=== PATIENT | female | born 1935 | race Caucasian/White ===

== ENCOUNTER 2017-03-08 10:19 | Outpatient (RCR) | payer MEDICARE, BC | END 2017-04-21 11:27 | disposition home or self-care (01) | LOC: PT 10:19 | DX: S82.841D Displaced bimalleolar fracture of right lower leg, subsequent encounter for closed fracture with routine healing (principal) ==

== ENCOUNTER → 2017-09-27 | Outpatient (CLI) | payer MEDICARE, BC | LOC: RAD 09:31 | DX: M19.172 Post-traumatic osteoarthritis, left ankle and foot (principal); X58.XXXS Exposure to other specified factors, sequela; S82.842P Displaced bimalleolar fracture of left lower leg, subsequent encounter for closed fracture with malunion; S82.841D Displaced bimalleolar fracture of right lower leg, subsequent encounter for closed fracture with routine healing; X58.XXXD Exposure to other specified factors, subsequent encounter; M19.071 Primary osteoarthritis, right ankle and foot ==

== ENCOUNTER 2018-04-27 10:30 | Outpatient (RCR) | payer MEDICARE, BC | END 2018-04-27 11:00 | disposition home or self-care (01) | LOC: PT 10:30 | DX: S82.52XD Displaced fracture of medial malleolus of left tibia, subsequent encounter for closed fracture with routine healing (principal); Z96.662 Presence of left artificial ankle joint | CPT/HCPCS: G8978-GP; G8979-GP ==

== ENCOUNTER 2018-10-16 11:30 | Outpatient (RCR) | payer MEDICARE, BC | END 2018-10-16 12:00 | disposition home or self-care (01) | LOC: PT 11:30 | DX: Z47.1 Aftercare following joint replacement surgery (principal); Z96.662 Presence of left artificial ankle joint | CPT/HCPCS: G8978-GP; G8979-GP ==

== ENCOUNTER → 2018-11-08 | Outpatient (CLI) | payer MEDICARE, BC ==
[2018-11-08 11:02] LABS: HEMATOCRIT 45.9 % (37.0-47.0); HEMOGLOBIN 14.8 g/dL (12.5-16.0); MEAN PLATELET VOLUME 11.5 fl (7.4-10.4); RED BLOOD COUNT 5.08 M/mm3 (4.10-5.30); WHITE BLOOD COUNT 11.6 K/mm3 (4.8-10.8)
[2018-11-08 11:07] LABS: CALCIUM 9.5 mg/dL (8.4-10.2); POTASSIUM 3.9 mmol/L (3.6-5.0)
== END ==
LOC: LAB 10:33
PROVIDERS: Psychiatry & Neurology Psychiatry
DX: I50.32 Chronic diastolic (congestive) heart failure (principal)

== ENCOUNTER 2020-05-11 15:30 | Outpatient (RCR) | payer MEDICARE, BC | END 2020-08-02 | disposition still patient (30) | LOC: PT | DX: R53.81 Other malaise (principal) ==

== ENCOUNTER → 2021-01-27 | Outpatient (CLI) | payer MEDICARE, BC | LOC: RAD 09:54 | DX: M25.561 Pain in right knee (principal); Z96.653 Presence of artificial knee joint, bilateral ==

== ENCOUNTER → 2022-01-14 | Outpatient (CLI) | payer MEDICARE, BC ==
[2022-01-14 15:49] VITALS: BP 103/54
== END ==
LOC: AMSURD 01-13 14:40
DX: M81.0 Age-related osteoporosis without current pathological fracture (principal)
CPT/HCPCS: J0897

== ENCOUNTER → 2022-05-12 | Outpatient (CLI) | payer MEDICARE, BC ==
[2022-05-12 10:46] LABS: HEMATOCRIT 37.9 % (37.0-47.0); HEMOGLOBIN 11.8 g/dL (12.5-16.0); MEAN PLATELET VOLUME 10.6 fl (7.4-10.4); RED BLOOD COUNT 4.21 M/mm3 (4.10-5.30); RED CELL DISTRIBUTION WIDTH 16.7 % (11.5-14.5); WHITE BLOOD COUNT 9.2 K/mm3 (4.8-10.8)
[2022-05-12 10:58] LABS: ALBUMIN 3.5 g/dL (3.4-4.8); POTASSIUM 4.2 mmol/L (3.5-5.1)
[2022-05-12 10:59] LABS: CALCIUM 9.3 mg/dL (8.3-10.5)
[2022-05-12 11:00] LABS: TOTAL PROTEIN 6.4 g/dL (6.2-8.1)
[2022-05-12 11:02] LABS: TOTAL BILIRUBIN 0.6 mg/dL (0.2-1.2)
== END ==
LOC: LAB 10:36
PROVIDERS: Internal Medicine Interventional Cardiology
DX: R06.02 Shortness of breath (principal)

== ENCOUNTER → 2022-07-21 | Outpatient (CLI) | payer MEDICARE, BC ==
[2022-07-21 16:46] LABS: ALBUMIN 3.6 g/dL (3.4-4.8)
[2022-07-21 16:47] LABS: POTASSIUM 3.7 mmol/L (3.5-5.1)
[2022-07-21 16:48] LABS: CALCIUM 9.8 mg/dL (8.3-10.5)
[2022-07-21 16:49] LABS: TOTAL PROTEIN 6.2 g/dL (6.2-8.1)
[2022-07-21 16:51] LABS: TOTAL BILIRUBIN 0.9 mg/dL (0.2-1.2)
== END ==
LOC: LAB 16:28
PROVIDERS: Internal Medicine Interventional Cardiology
DX: Z01.89 Encounter for other specified special examinations (principal)

== ENCOUNTER → 2022-08-20 | Outpatient (CLI) | payer MEDICARE, BC ==
[~2022-08-20] VITALS: Ht 165.1 cm; Wt 77.0 kg
[~2022-08-20] MED LIST: ALENDRONATE SOD70 MG PO; AMBIEN5 M1 PO; BYSTOLIC5 MG PO; ELIQUIS5 MG PO; HYDROXYZINE HCL25 M1 PO; LEVOTHYROXINE125 MCG PO; MYRBETRIQ25 MG PO; PANTOPRAZOLE SO40 MG PO; PAROXETINE HYDR30 MG PO; TORSEMIDE20 M1 PO
[2022-08-20 15:11] VITALS: BP 128/62
== END ==
LOC: AMSURD 13:34
DX: M81.0 Age-related osteoporosis without current pathological fracture (principal)
CPT/HCPCS: J0897

== ENCOUNTER 2023-07-23 00:17 | Inpatient (IN) | payer MEDICARE, BC ==
[~2023-07-23] VITALS: Ht 160 cm; Wt 77.7 kg
[2023-07-23] MEDS ORDERED: ZYLOPRIM 100MG100 MG PO (00:26)
[2023-07-23] MEDS ORDERED: TRELEGY ELLIPT1 EAC1 IH (00:27)
[2023-07-23] MEDS ORDERED: ANORO ELLIPTA1 POW IH (00:31)
[2023-07-23] MEDS ORDERED: ENTRESTO 24 MG1 EACH PO (00:32)
[2023-07-23] MEDS ORDERED: ISOSORBIDE30 MG PO (00:34)
[2023-07-23] MEDS ORDERED: GOOD SENSE ASPI81 M1 PO (01:01)
[2023-07-23] MEDS ORDERED: CALTRATE 600 +1 TAB PO (01:02)
[2023-07-23] MEDS ORDERED: CRANBERRY200 MG PO (01:03)
[2023-07-23] MEDS ORDERED: COLACE100 M1 PO (01:03)
[2023-07-23] MEDS ORDERED: [UNRECOGNIZED DRUG - OTHER] (01:04)
[2023-07-23] MEDS ORDERED: CENTRUM SILVER1 EACH PO (01:05)
[2023-07-23] MEDS ORDERED: [UNRECOGNIZED DRUG - OTHER] PO (01:05)
[2023-07-23] MEDS ORDERED: VITAMIN C500 M6 PO (01:06)
[2023-07-23] MEDS ORDERED: NORCO 325 MG-7.1 TA1 PO (01:07)
[2023-07-23] MEDS ORDERED: ATIVAN0.5 MG PO (01:08)
[2023-07-23] MEDS ORDERED: NITROSTAT0.4 M1 SL (01:09)
[2023-07-23] MEDS ORDERED: ZOFRAN ODT4 MG PO (01:09)
[2023-07-23] MEDS ORDERED: TYLENOL EXTRA500 M2 PO (01:10)
[2023-07-23] MEDS ORDERED: VOLTAREN ARTHRI20 GM (01:11)
[2023-07-23 05:42] VITALS: BP 111/74
[2023-07-23 09:59] VITALS: BP 97/61
[2023-07-23 14:25] VITALS: BP 114/69
[2023-07-23 17:06] VITALS: BP 79/39
[2023-07-23 21:59] VITALS: BP 119/64; BP 94/48
[2023-07-24] VITALS (7 sets, daily range): BP systolic 94–106; BP diastolic 46–68
[2023-07-24 07:01] LABS: POTASSIUM 4.2 mmol/L (3.5-5.1)
[2023-07-24 07:02] LABS: CALCIUM 8.7 mg/dL (8.3-10.5)
[2023-07-24 07:51] LABS: BASO # 0.06 K/mm3 (0.02-0.10); EOS # 0.71 K/mm3 (0.04-0.40); HEMATOCRIT 31.4 % (37.0-47.0); HEMOGLOBIN 9.7 g/dL (12.5-16.0); LYMPH# 2.18 K/mm3 (1.50-4.00); MEAN CELL VOLUME 86 fl (78-100); MEAN CORPUSCULAR HEMOGLOBIN 26 pg (27-31); MEAN CORPUSCULAR HGB CONC 31 g/dL (33-37); MEAN PLATELET VOLUME 11.7 fl (7.4-10.4); MONO # 0.78 K/mm3 (0.20-0.80); NEU # 6.41 K/mm3 (1.40-6.50); PLATELET COUNT 210 K/mm3 (130-400); RED BLOOD COUNT 3.67 M/mm3 (4.10-5.30); WHITE BLOOD COUNT 10.2 K/mm3 (4.8-10.8)
[2023-07-25 02:19] VITALS: BP 106/51
[2023-07-25 05:50] VITALS: BP 106/63
[2023-07-25 06:15] LABS: BASO # 0.05 K/mm3 (0.02-0.10); EOS # 0.52 K/mm3 (0.04-0.40); EOS % 4.4 % (1.0-5.0); HEMATOCRIT 27.8 % (37.0-47.0); HEMOGLOBIN 8.8 g/dL (12.5-16.0); LYMPH# 1.82 K/mm3 (1.50-4.00); MEAN CELL VOLUME 86 fl (78-100); MEAN CORPUSCULAR HEMOGLOBIN 27 pg (27-31); MEAN CORPUSCULAR HGB CONC 32 g/dL (33-37); MEAN PLATELET VOLUME 11.5 fl (7.4-10.4); MONO # 0.88 K/mm3 (0.20-0.80); NEU # 8.58 K/mm3 (1.40-6.50); PLATELET COUNT 197 K/mm3 (130-400); RED BLOOD COUNT 3.23 M/mm3 (4.10-5.30); RED CELL DISTRIBUTION WIDTH 17.9 % (11.5-14.5); WHITE BLOOD COUNT 11.9 K/mm3 (4.8-10.8)
[2023-07-25 07:32] LABS: ALBUMIN 2.8 g/dL (3.4-4.8)
[2023-07-25 07:33] LABS: POTASSIUM 4.4 mmol/L (3.5-5.1)
[2023-07-25 07:34] LABS: CALCIUM 8.6 mg/dL (8.3-10.5)
[2023-07-25 07:35] LABS: TOTAL PROTEIN 5.4 g/dL (6.2-8.1)
[2023-07-25 07:37] LABS: TOTAL BILIRUBIN 0.6 mg/dL (0.2-1.2)
[2023-07-25 09:22] VITALS: BP 102/52
[2023-07-25 13:27] VITALS: BP 102/60
[2023-07-25 17:05] VITALS: BP 98/60
[2023-07-25 21:38] VITALS: BP 103/63; BP 115/72
[2023-07-26 00:39] LABS: URINE APPEARANCE CLOUDY; URINE BILIRUBIN NEGATIVE (NEGATIVE); URINE BLOOD TRACE (NEGATIVE); URINE COLOR YELLOW; URINE GLUCOSE NEGATIVE (NEGATIVE); URINE KETONE NEGATIVE (NEGATIVE); URINE LEUKOCYTE ESTERASE 2+ (NEGATIVE); URINE NITRATE NEGATIVE (NEGATIVE); URINE PROTEIN(semi-quant) 1+ (NEGATIVE); URINE UROBILINOGEN NORMAL (NORMAL); URINE WBC >50 /hpf (0-3)
[2023-07-26 00:40] LABS: URINE MUCUS PRESENT (NOT PRESENT)
[2023-07-26 01:39] VITALS: BP 100/61
[2023-07-26 05:36] VITALS: BP 121/62
[2023-07-26 08:10] LABS: BASO # 0.05 K/mm3 (0.02-0.10); EOS # 0.58 K/mm3 (0.04-0.40); EOS % 6.5 % (1.0-5.0); HEMATOCRIT 27.2 % (37.0-47.0); HEMOGLOBIN 8.6 g/dL (12.5-16.0); LYMPH# 1.86 K/mm3 (1.50-4.00); MEAN CELL VOLUME 86 fl (78-100); MEAN CORPUSCULAR HEMOGLOBIN 27 pg (27-31); MEAN CORPUSCULAR HGB CONC 32 g/dL (33-37); MEAN PLATELET VOLUME 11.4 fl (7.4-10.4); MONO # 0.84 K/mm3 (0.20-0.80); NEU # 5.48 K/mm3 (1.40-6.50); PLATELET COUNT 209 K/mm3 (130-400); RED BLOOD COUNT 3.18 M/mm3 (4.10-5.30); RED CELL DISTRIBUTION WIDTH 18.1 % (11.5-14.5); WHITE BLOOD COUNT 8.9 K/mm3 (4.8-10.8)
[2023-07-26 08:12] LABS: ALBUMIN 2.9 g/dL (3.4-4.8); POTASSIUM 4.8 mmol/L (3.5-5.1)
[2023-07-26 08:14] LABS: CALCIUM 8.5 mg/dL (8.3-10.5)
[2023-07-26 08:15] LABS: TOTAL PROTEIN 5.4 g/dL (6.2-8.1)
[2023-07-26 08:17] LABS: TOTAL BILIRUBIN 0.5 mg/dL (0.2-1.2)
[2023-07-26 09:49] VITALS: BP 108/65
== END 2023-07-26 14:14 | disposition swing bed (61) | DRG 536 ==
LOC: MED/SURG 00:17
PROVIDERS: Family Medicine; Nurse Practitioner; Physician Assistant; ADMIT Family Medicine
DX: S32.591A Other specified fracture of right pubis, initial encounter for closed fracture (principal); I50.22 Chronic systolic (congestive) heart failure; J45.901 Unspecified asthma with (acute) exacerbation; I48.91 Unspecified atrial fibrillation; G47.33 Obstructive sleep apnea (adult) (pediatric); N32.81 Overactive bladder; G89.29 Other chronic pain; M54.50 Low back pain, unspecified; M25.521 Pain in right elbow; R53.81 Other malaise; W18.30XA Fall on same level, unspecified, initial encounter; Z79.01 Long term (current) use of anticoagulants; Y92.009 Unspecified place in unspecified non-institutional (private) residence as the place of occurrence of the external cause; Z90.5 Acquired absence of kidney; Z95.2 Presence of prosthetic heart valve; Z96.651 Presence of right artificial knee joint; Z95.810 Presence of automatic (implantable) cardiac defibrillator; Z79.82 Long term (current) use of aspirin; Z79.891 Long term (current) use of opiate analgesic
CPT/HCPCS: J0696; J7040; Q0177

== ENCOUNTER 2023-07-26 11:42 | Inpatient (IN) | payer MEDICARE, BC ==
[~2023-07-26] VITALS: Ht 160 cm; Wt 83.5 kg
[~2023-07-26 11:42] MED LIST changes: +ANORO ELLIPTA1 POW IH; +ATIVAN0.5 MG PO; +CALTRATE 600 +1 TAB PO; +CENTRUM SILVER1 EACH PO; +COLACE100 M1 PO; +CRANBERRY200 MG PO; +ENTRESTO 24 MG1 EACH PO; +GOOD SENSE ASPI81 M1 PO; +ISOSORBIDE30 MG PO; +NITROSTAT0.4 M1 SL; +NORCO 325 MG-7.1 TA1 PO; +TRELEGY ELLIPT1 EAC1 IH; +TYLENOL EXTRA500 M2 PO; +VITAMIN C500 M6 PO; +VOLTAREN ARTHRI20 GM; +ZOFRAN ODT4 MG PO; +ZYLOPRIM 100MG100 MG PO; +[UNRECOGNIZED DRUG - OTHER]; +[UNRECOGNIZED DRUG - OTHER] PO
[2023-07-27 05:46] VITALS: BP 115/57
[2023-07-27 17:16] VITALS: BP 95/68
[2023-07-27 20:30] VITALS: BP 110/48
[2023-07-28 05:41] VITALS: BP 108/66
[2023-07-28 16:59] VITALS: BP 90/54
[2023-07-29 06:18] VITALS: BP 129/73
[2023-07-29 08:19] LABS: POTASSIUM 4.7 mmol/L (3.5-5.1)
[2023-07-29 08:20] LABS: CALCIUM 8.7 mg/dL (8.3-10.5)
[2023-07-29 17:32] VITALS: BP 92/57
[2023-07-29 19:47] VITALS: BP 95/60
[2023-07-30 05:44] VITALS: BP 113/62
[2023-07-30 06:02] VITALS: BP 113/62
[2023-07-30 06:05] VITALS: BP 113/62
[2023-07-30 17:22] VITALS: BP 87/43
[2023-07-31 05:40] VITALS: BP 111/63
[2023-07-31 10:42] LABS: BASO # 0.07 K/mm3 (0.02-0.10); EOS % 6.5 % (1.0-5.0); HEMATOCRIT 27.1 % (37.0-47.0); HEMOGLOBIN 8.4 g/dL (12.5-16.0); LYMPH# 1.47 K/mm3 (1.50-4.00); MEAN CELL VOLUME 89 fl (78-100); MEAN CORPUSCULAR HEMOGLOBIN 28 pg (27-31); MEAN CORPUSCULAR HGB CONC 31 g/dL (33-37); MEAN PLATELET VOLUME 10.1 fl (7.4-10.4); NEU # 5.81 K/mm3 (1.40-6.50); PLATELET COUNT 253 K/mm3 (130-400); RED BLOOD COUNT 3.05 M/mm3 (4.10-5.30); RED CELL DISTRIBUTION WIDTH 20.3 % (11.5-14.5); WHITE BLOOD COUNT 9.2 K/mm3 (4.8-10.8)
[2023-07-31 10:46] LABS: ALBUMIN 2.9 g/dL (3.4-4.8); POTASSIUM 4.9 mmol/L (3.5-5.1)
[2023-07-31 10:47] LABS: CALCIUM 9.2 mg/dL (8.3-10.5)
[2023-07-31 10:49] LABS: TOTAL PROTEIN 5.5 g/dL (6.2-8.1)
[2023-07-31 10:50] LABS: TOTAL BILIRUBIN 0.5 mg/dL (0.2-1.2)
[2023-07-31 17:04] VITALS: BP 99/62
[2023-08-01 05:48] VITALS: BP 114/60
[2023-08-01 17:01] VITALS: BP 96/57
[2023-08-02 05:23] VITALS: BP 108/63
[2023-08-02 07:24] LABS: BASO # 0.06 K/mm3 (0.02-0.10); EOS # 0.58 K/mm3 (0.04-0.40); EOS % 7.6 % (1.0-5.0); HEMATOCRIT 26.5 % (37.0-47.0); HEMOGLOBIN 8.4 g/dL (12.5-16.0); LYMPH# 1.63 K/mm3 (1.50-4.00); MEAN CELL VOLUME 88 fl (78-100); MEAN CORPUSCULAR HEMOGLOBIN 28 pg (27-31); MEAN CORPUSCULAR HGB CONC 32 g/dL (33-37); MEAN PLATELET VOLUME 9.8 fl (7.4-10.4); NEU # 4.46 K/mm3 (1.40-6.50); PLATELET COUNT 265 K/mm3 (130-400); RED CELL DISTRIBUTION WIDTH 21.3 % (11.5-14.5); WHITE BLOOD COUNT 7.6 K/mm3 (4.8-10.8)
[2023-08-02 07:35] LABS: ALBUMIN 2.8 g/dL (3.4-4.8); POTASSIUM 4.4 mmol/L (3.5-5.1); SODIUM 138 mmol/L (136-145)
[2023-08-02 07:36] LABS: CALCIUM 8.9 mg/dL (8.3-10.5)
[2023-08-02 07:37] LABS: GLUCOSE 93 mg/dL (65-105); TOTAL PROTEIN 5.4 g/dL (6.2-8.1)
[2023-08-02 07:38] LABS: CARBON DIOXIDE 21 mmol/L (23-31)
[2023-08-02 07:39] LABS: TOTAL BILIRUBIN 0.6 mg/dL (0.2-1.2)
[2023-08-02 07:43] LABS: AST-SGOT 19 U/L (5-34)
[2023-08-02 07:44] LABS: ALT/SGPT 10 U/L (0-55)
[2023-08-02 07:53] LABS: TROPONIN-I < 0.030 ng/mL (<0.030)
[2023-08-02 08:38] LABS: D-DIMER 4.27 mg/L FEU (0.15-0.50)
[2023-08-02 17:06] VITALS: BP 108/67
[2023-08-03 05:44] VITALS: BP 110/58
[2023-08-03 17:11] VITALS: BP 114/66
[2023-08-04 05:54] VITALS: BP 107/68
[2023-08-04 17:06] VITALS: BP 95/49
[2023-08-05 05:48] VITALS: BP 110/70
[2023-08-05 17:49] VITALS: BP 112/54
[2023-08-06 05:36] VITALS: BP 107/69
[2023-08-06 17:11] VITALS: BP 102/63
[2023-08-07 05:42] VITALS: BP 134/77
[2023-08-07 09:51] LABS: ALBUMIN 3.2 g/dL (3.4-4.8); POTASSIUM 3.7 mmol/L (3.5-5.1)
[2023-08-07 09:54] LABS: TOTAL PROTEIN 6.2 g/dL (6.2-8.1)
[2023-08-07 09:56] LABS: TOTAL BILIRUBIN 0.6 mg/dL (0.2-1.2)
[2023-08-07 10:16] LABS: BASO # 0.08 K/mm3 (0.02-0.10); EOS # 0.82 K/mm3 (0.04-0.40); EOS % 8.3 % (1.0-5.0); HEMATOCRIT 32.1 % (37.0-47.0); HEMOGLOBIN 9.6 g/dL (12.5-16.0); LYMPH# 1.67 K/mm3 (1.50-4.00); MEAN CELL VOLUME 93 fl (78-100); MEAN CORPUSCULAR HEMOGLOBIN 28 pg (27-31); MEAN CORPUSCULAR HGB CONC 30 g/dL (33-37); MEAN PLATELET VOLUME 10.2 fl (7.4-10.4); NEU # 6.45 K/mm3 (1.40-6.50); PLATELET COUNT 303 K/mm3 (130-400); RED BLOOD COUNT 3.44 M/mm3 (4.10-5.30); RED CELL DISTRIBUTION WIDTH 23.7 % (11.5-14.5); WHITE BLOOD COUNT 9.9 K/mm3 (4.8-10.8)
[2023-08-07 13:01] VITALS: BP 144/68
[2023-08-07 17:13] VITALS: BP 96/59
[2023-08-08 05:30] VITALS: BP 104/59
[2023-08-08 11:54] LABS: URINE APPEARANCE CLEAR; URINE BILIRUBIN NEGATIVE (NEGATIVE); URINE BLOOD NEGATIVE (NEGATIVE); URINE COLOR YELLOW; URINE GLUCOSE NEGATIVE (NEGATIVE); URINE KETONE NEGATIVE (NEGATIVE); URINE LEUKOCYTE ESTERASE NEGATIVE (NEGATIVE); URINE MUCUS PRESENT (NOT PRESENT); URINE NITRATE NEGATIVE (NEGATIVE); URINE PROTEIN(semi-quant) 1+ (NEGATIVE); URINE UROBILINOGEN NORMAL (NORMAL); URINE WBC 0-1 /hpf (0-3)
[2023-08-08 17:15] VITALS: BP 100/62
[2023-08-09 05:27] LABS: BASO # 0.07 K/mm3 (0.02-0.10); EOS # 0.66 K/mm3 (0.04-0.40); EOS % 8.9 % (1.0-5.0); HEMATOCRIT 28.1 % (37.0-47.0); HEMOGLOBIN 8.4 g/dL (12.5-16.0); LYMPH# 1.41 K/mm3 (1.50-4.00); MEAN CELL VOLUME 93 fl (78-100); MEAN CORPUSCULAR HEMOGLOBIN 28 pg (27-31); MEAN CORPUSCULAR HGB CONC 30 g/dL (33-37); MEAN PLATELET VOLUME 9.7 fl (7.4-10.4); MONO # 0.72 K/mm3 (0.20-0.80); NEU # 4.52 K/mm3 (1.40-6.50); PLATELET COUNT 260 K/mm3 (130-400); RED BLOOD COUNT 3.01 M/mm3 (4.10-5.30); RED CELL DISTRIBUTION WIDTH 23.2 % (11.5-14.5); WHITE BLOOD COUNT 7.4 K/mm3 (4.8-10.8)
[2023-08-09 05:39] LABS: ALBUMIN 2.9 g/dL (3.4-4.8)
[2023-08-09 05:40] LABS: POTASSIUM 4.2 mmol/L (3.5-5.1)
[2023-08-09 05:41] LABS: CALCIUM 9.3 mg/dL (8.3-10.5)
[2023-08-09 05:42] LABS: TOTAL PROTEIN 5.3 g/dL (6.2-8.1)
[2023-08-09 05:44] LABS: TOTAL BILIRUBIN 0.5 mg/dL (0.2-1.2)
[2023-08-09 06:01] VITALS: BP 106/54
[2023-08-09 17:03] VITALS: BP 99/63
[2023-08-10 05:34] VITALS: BP 108/67
[2023-08-10 17:01] VITALS: BP 136/64
[2023-08-11 05:34] VITALS: BP 128/64
== END 2023-08-11 10:30 | disposition home or self-care (01) | DRG 560 ==
LOC: MED/SURG 11:42
PROVIDERS: Family Medicine; Nurse Practitioner; Nurse Practitioner Family; ADMIT Family Medicine
DX: S32.591D Other specified fracture of right pubis, subsequent encounter for fracture with routine healing (principal); I50.22 Chronic systolic (congestive) heart failure; I11.0 Hypertensive heart disease with heart failure; J44.9 Chronic obstructive pulmonary disease, unspecified; E03.9 Hypothyroidism, unspecified; I48.91 Unspecified atrial fibrillation; G47.30 Sleep apnea, unspecified; K21.9 Gastro-esophageal reflux disease without esophagitis; M10.9 Gout, unspecified; M25.529 Pain in unspecified elbow; G89.29 Other chronic pain; M54.50 Low back pain, unspecified; F32.A Depression, unspecified; F41.9 Anxiety disorder, unspecified; G47.00 Insomnia, unspecified; R53.81 Other malaise; W18.30XD Fall on same level, unspecified, subsequent encounter; Z79.890 Hormone replacement therapy; Z79.01 Long term (current) use of anticoagulants; Z79.82 Long term (current) use of aspirin; Z79.891 Long term (current) use of opiate analgesic; Z91.81 History of falling; Z95.2 Presence of prosthetic heart valve
CPT/HCPCS: J0696; Q0177

== ENCOUNTER 2023-11-18 17:38 | Inpatient (IN) | payer MEDICARE, BC ==
[~2023-11-18] VITALS: Ht 170.2 cm; Wt 79.0 kg
[~2023-11-18 17:38] MED LIST changes: +AMOXIL500 M1; +APRESOLINE 10MG10 MG PO; +ASPIRIN E.C. 8181 MG; +ASPIRIN E.C. 8181 MG PO; +ATIVAN1 M1 PO; +BACTRIM DS TAB1 EACH PO; +CALCIUM 600 MG1 EAC2 PO; +ELIQUIS2.5 MG PO; +ESTRACE0.1 MG/GM VG; +FLORAJEN ACIDO1 EACH PO; +GOOD NEIGH1200 MG/15 PO; +HYDROCORTISON28.4 G4 TOP; +ICY HOT CREAM35.4 GM; +IMODIUM A-D2 M3 PO; +ISOSORBIDE DINI PO; +MACRODANTIN50 M1 PO; +MUCINEX 60600 MG/TA1 PO; +MYLANTA COAT-C355 ML PO; +OCUVITE TABLET1 TAB PO; +PREPARATION H O28 GM RC; +TORSEMIDE10 M1 PO; +VITAMIN C PUR1000 MG PO; +VOLTAREN ARTHRI20 GM TP; +[UNRECOGNIZED DRUG - OTHER] PO
--- NOTE | 2023-11-18 19:00 | NUR ---
PT RECEIVED FROM ER AT 1845, BY STRETCHER, PT ON CONTINUOUS BIPAP, PT IS A/O X3, EXHAUSTED FROM RESPIRATORY DISTRESS, IV WAS STARTED BY ER PERSONEL. IV IS IN R FA 22G SL. PT CURRENTLY IN BED AT LOWEST POSITION, ALARMED WITH CALL LIGHT IN REACH.
[2023-11-18 19:15] VITALS: BP 140/67
[2023-11-18 22:08] VITALS: BP 138/73
[2023-11-19 02:41] VITALS: BP 151/65
[2023-11-19 05:54] VITALS: BP 157/74
--- NOTE | 2023-11-19 07:01 | NUR ---
RECEIVED REPORT FROM KIMMY TIRADO
[2023-11-19 08:14] LABS: BASO # 0.01 K/mm3 (0.02-0.10); HEMOGLOBIN 10.5 g/dL (12.5-16.0); LYMPH# 0.71 K/mm3 (1.50-4.00); MEAN CELL VOLUME 96 fl (78-100); MEAN CORPUSCULAR HEMOGLOBIN 30 pg (27-31); MEAN CORPUSCULAR HGB CONC 31 g/dL (33-37); MEAN PLATELET VOLUME 11.1 fl (7.4-10.4); MONO # 0.55 K/mm3 (0.20-0.80); NEU # 5.64 K/mm3 (1.40-6.50); PLATELET COUNT 148 K/mm3 (130-400); RED BLOOD COUNT 3.56 M/mm3 (4.10-5.30); RED CELL DISTRIBUTION WIDTH 17.7 % (11.5-14.5)
[2023-11-19 08:22] LABS: ALBUMIN 3.3 g/dL (3.4-4.8)
[2023-11-19 08:23] LABS: CALCIUM 9.4 mg/dL (8.3-10.5)
[2023-11-19 08:24] LABS: TOTAL PROTEIN 6.8 g/dL (6.2-8.1)
[2023-11-19 08:26] LABS: TOTAL BILIRUBIN 0.9 mg/dL (0.2-1.2)
--- NOTE | 2023-11-19 09:25 | NUR ---
PATIENT IS A&O X 4. DENIES PAIN OR DISCOMFORT. DC'D BIPAP PER PROVIDER ORDERS BEFORE BREAKFAST. PATIET ATE WELL, FEEDING SELF WITH OUT ISSUE. MEDS TAKEN WHOLE. CONTINUES WITH FLUID REST. BREATHING UNLABORED ON 4L PER NC AT THIS TIME. WHEEZES HEARD ON ASCULTATION TO BI LAT BASES, PATIENT WITH NON PRODUCTIVE COUGH. HOME MED ELLIPTA UNAVAILABLE AT THIS TIME.
[2023-11-19 09:39] VITALS: BP 163/82
--- NOTE | 2023-11-19 11:56 | NUR ---
TURNER ORDERED FROM PHARMACY AND WILL BE HERE THIS AFTERNOON. PATIENT'S SON PHONED TO ASK ABOUT CONDITION AND NOTIFIED HIM SHE WOULD NOT BE DISCHARGED TODAY. HE REQUESTED OUR HELP IN HAVING HER CALL HIM AT HOME, DRAFTER WILL ASSIST WITH THIS. PATIENT BREATHING CONTINUES TO BE UNLABORED ON 4L PER NC WITH SATS REMAINING >95%
--- NOTE | 2023-11-19 13:00 | NUR ---
REPORT GIVEN TO KIMMY GARCIA
--- NOTE | 2023-11-19 13:00 | NUR ---
RESUMED CARE FROM KIMMY MEZA.
--- NOTE | 2023-11-19 13:35 | NUR ---
ERP in with patient at this time.
[2023-11-19 14:42] VITALS: BP 139/77
[2023-11-19 18:25] VITALS: BP 103/66
--- NOTE | 2023-11-19 18:44 | NUR ---
REPORT TO KIMMY JOSUE.
--- NOTE | 2023-11-19 20:58 | NUR ---
PT WAS IN BED WATCHING TV. MEDICATIONS TAKEN PO WITHOUT ANY DIFFICULTY. REPORTED HAVING SOA, ALBUTOROL BREATHING TREATMENT COMPLETE AND O2 RUNNING AT 4L VIA NC. REPORTING HAVING NO PAIN. ASSESSMENT COMPLETE. CALL LIGHT WITHIN REACH.
[2023-11-19 21:44] VITALS: BP 122/85
[2023-11-20 01:43] VITALS: BP 134/68
--- NOTE | 2023-11-20 02:00 | NUR ---
DURING ASSESSMENT PT STATED HAVING DIFICULTIE BREATHING, PT WAS ON 6LO2 VIA NC AND SATS WERE 97% sPO2%. PT WAS NOTED HAVING INCREASED WORK OF BREATHING, PROVIDER WAS CONSULTED AND BIPAP WAS RESTARTED, PT HAD INCREASED ANXIETY, SO PROVIDER ORDERED AN ADDITIONAL DOSE OF LORAZEPAM IV WHICH WAS ADMINISTERED PER JAN. PT TOLERATING BIPAP,WORK OF BREATHING DECREASED. PT LEFT IN BED AT LOWEST POSITION, ALARMED WITH CALL LIGHT IN REACH.
[2023-11-20 05:48] VITALS: BP 120/73
[2023-11-20 06:40] LABS: HEMOGLOBIN 10.4 g/dL (12.5-16.0); MEAN PLATELET VOLUME 12.1 fl (7.4-10.4); RED BLOOD COUNT 3.52 M/mm3 (4.10-5.30); RED CELL DISTRIBUTION WIDTH 17.8 % (11.5-14.5); WHITE BLOOD COUNT 9.8 K/mm3 (4.8-10.8)
[2023-11-20 06:50] LABS: ALBUMIN 3.4 g/dL (3.4-4.8)
[2023-11-20 06:52] LABS: TOTAL PROTEIN 6.9 g/dL (6.2-8.1)
[2023-11-20 06:54] LABS: TOTAL BILIRUBIN 0.7 mg/dL (0.2-1.2)
--- NOTE | 2023-11-20 07:00 | NUR ---
REPORT FROM KIMMY TIRADO
--- NOTE | 2023-11-20 08:00 | NUR ---
BIPAP REMOVED AT THIS TIME FOR PATIENT TO EAT BREAKFAST. O2 AT 6L VIA NC.
--- NOTE | 2023-11-20 08:45 | NUR ---
PATIENT SITTING UP IN BED WITH BREAKFAST, A&OX4. STATES "FEELING BETTER". PATIENT O2 STATS REMAIN WNL ON 6L VIA NC. PATIENT IS DYSPNEIC AT REST WITH TACHYPNEA. DENIES PAIN OR DISCOMFORT AT THIS TIME. DENIES OTHER NEEDS OR COMPLAINTS AT THIS TIME. FALL PRECAUTIONS IN PLACE. CALL LIGHT WITHIN REACH.
[2023-11-20 09:44] VITALS: BP 113/74
[2023-11-20 13:47] VITALS: BP 144/82
[2023-11-20 17:35] VITALS: BP 147/80
--- NOTE | 2023-11-20 19:07 | NUR ---
Report received from Alexandra ONEAL. Patient resting supine in bed with eyes closed. Oxygen in place at 4 L/NC. TELE and continuous SAT monitor in place with SAO2 at 98% on the 4L of O2. Awakens easily with verbal stimuli. Oriented x4. Very tired and fatigued. Assessment completed. Incontinent of urine, BEHAVIORAL INTERVENTIONIST in to help change and reposition. Buttocks reddened with no open areas noted. Barrier cream applied. Denies wants or needs. Bed alarm on. Call light in reach.
--- NOTE | 2023-11-20 20:25 | NUR ---
HS medications taken whole without difficulty. VSS. Oral cares completed. Resting comfortably with oxygen in place at 4L/NC. Bed alarm on. Call light in reach.
[2023-11-20 21:47] VITALS: BP 144/71
--- NOTE | 2023-11-20 23:25 | NUR ---
Resting quietly. SAO2 remains at 98-99% on 4L/NC.
--- NOTE | 2023-11-21 01:30 | NUR ---
Repositioned with incontinent cares provided. No orthopnea noted on monitor while changing brief. Denies pain. Resting well with oxygen in place at 4L/NC. Drinking PO fluids well while maintaining fluid restriction. Bed alarm on. Call light in reach.
[2023-11-21 01:31] VITALS: BP 116/82
--- NOTE | 2023-11-21 05:37 | NUR ---
Requested a "lozenge" for dry throat. Provider notified and order received. SAO2 remains at 99% on 4L. No episodes of desaturation this shift. Denies pain.
[2023-11-21 05:47] VITALS: BP 118/66
--- NOTE | 2023-11-21 06:56 | NUR ---
Report to Alexandra/Kortney ONEAL.
[2023-11-21 07:19] LABS: HEMOGLOBIN 10.4 g/dL (12.5-16.0); MEAN CELL VOLUME 94 fl (78-100); MEAN CORPUSCULAR HEMOGLOBIN 30 pg (27-31); MEAN CORPUSCULAR HGB CONC 32 g/dL (33-37); PLATELET COUNT 144 K/mm3 (130-400); RED BLOOD COUNT 3.51 M/mm3 (4.10-5.30); RED CELL DISTRIBUTION WIDTH 17.6 % (11.5-14.5); WHITE BLOOD COUNT 10.5 K/mm3 (4.8-10.8)
[2023-11-21 07:29] LABS: ALBUMIN 3.4 g/dL (3.4-4.8)
[2023-11-21 07:31] LABS: CALCIUM 9.1 mg/dL (8.3-10.5)
[2023-11-21 07:32] LABS: TOTAL PROTEIN 6.8 g/dL (6.2-8.1)
[2023-11-21 07:34] LABS: TOTAL BILIRUBIN 0.6 mg/dL (0.2-1.2)
[2023-11-21 08:11] LABS: LYMPHOCYTE 5 % (20-51); MONOCYTE 3 % (3-10); NEUTROPHILS 92 % (42-75)
--- NOTE | 2023-11-21 10:00 | NUR ---
PT CONTINUES TO HAVE INCEASED WORK OF BREATHING. BNP DECREASED SIGNIFICANTLY. PTS SON UPDATED AT THIS TIME.
[2023-11-21 10:10] VITALS: BP 129/93
[2023-11-21 13:29] VITALS: BP 145/52
[2023-11-21 17:05] VITALS: BP 129/80
--- NOTE | 2023-11-21 18:53 | NUR ---
SBAR HANDOFF GIVEN TO KIMMY JOSUE
--- NOTE | 2023-11-21 19:15 | NUR ---
PT was in bed watching tv. reported having some SOA but was improving. Asked for something to help her sleep when night time medications are passed.
[2023-11-21 21:41] VITALS: BP 144/68
--- NOTE | 2023-11-21 21:53 | NUR ---
PT WAS SITTING UP IN BED. REPORTED HAVING NO PAIN, HAS SOME SOA. MEDICATIONS TAKEN PO WITHOUT DIFFICULTY. BREATHING TREAMENT COMPLETE AND TOLERATED WELL. ASSESSMENT COMPLETE. WILL CONINUE TO MONITOR. CALL LIGHT WITHIN REACH.
[2023-11-22 01:32] VITALS: BP 140/67
--- NOTE | 2023-11-22 01:43 | NUR ---
PT REPORTED HAVING TROUBLE SLEEPING. ATIVAN IV GIVEN. IV SITE FLUSHED BEFORE\AFTER.
[2023-11-22 05:39] VITALS: BP 154/78
[2023-11-22 07:03] LABS: HEMATOCRIT 32.6 % (37.0-47.0); HEMOGLOBIN 10.1 g/dL (12.5-16.0); MEAN CELL VOLUME 94 fl (78-100); MEAN CORPUSCULAR HEMOGLOBIN 29 pg (27-31); MEAN CORPUSCULAR HGB CONC 31 g/dL (33-37); MEAN PLATELET VOLUME 12.2 fl (7.4-10.4); PLATELET COUNT 142 K/mm3 (130-400); RED BLOOD COUNT 3.46 M/mm3 (4.10-5.30); RED CELL DISTRIBUTION WIDTH 17.6 % (11.5-14.5); WHITE BLOOD COUNT 11.8 K/mm3 (4.8-10.8)
[2023-11-22 07:11] LABS: ALBUMIN 3.5 g/dL (3.4-4.8)
[2023-11-22 07:13] LABS: CALCIUM 9.2 mg/dL (8.3-10.5)
[2023-11-22 07:14] LABS: TOTAL PROTEIN 6.9 g/dL (6.2-8.1)
[2023-11-22 07:16] LABS: TOTAL BILIRUBIN 0.7 mg/dL (0.2-1.2)
[2023-11-22 07:57] LABS: LYMPHOCYTE 5 % (20-51); MONOCYTE 4 % (3-10); NEUTROPHILS 91 % (42-75); NUCLEATED RED BLOOD CELL 1 (0-6)
[2023-11-22 07:58] LABS: TEAR DROP CELLS 1+
--- NOTE | 2023-11-22 09:05 | NUR ---
PT SITTING UP IN BED WHEN THIS NURSE ENTERS. PT DENIES ANY PAIN CURRENTLY. REPORTS SOME DIZZINESS, PT WANTS SOME ATIVAN, THIS RN GOT PRN ATIVAN FOR PT. PT ATE AP[PROXIMATELY 505 OF BREAKFAST. PT DENIES COUGHING ANYTHING UP AT THIS POINT. HACKING COUGH NOTED. PT WATCHING TV WHILE IN BED, CALL LIGHT WITHIN REACH.
[2023-11-22 09:59] VITALS: BP 138/70
--- NOTE | 2023-11-22 11:43 | NUR ---
COOPER DONOVAN CALLED, UPDATED ON PATIENT THIS MORNING. NOTIFIED WILL RETURN CALL AFTER PROVIDER ABLE TO SEE PATIENT.
--- NOTE | 2023-11-22 13:36 | NUR ---
DONYA FOUND IN PATIENT ROOM PER TECH. ERP NOTIFIED. THIS RN HELPED PT THIS MORNING WITH MEDS, POSSILBY DROPPED YESTERDAYS DOSE. DISPOSED OF MEDICATION.
--- NOTE | 2023-11-22 13:41 | NUR ---
DR. WOODS'S OFFICE CONTACTED FOR FOLLOW UP VISIT. ANSWERING SERVICE REPORTS THAT THEY ARE NOT BACK INTO THE OFFICE UNTIL TOMORROW. FESTUS CAREY GIVEN FOR CONTACT TO SET FOLLOW UP APT. RITA NOTIFIED.
--- NOTE | 2023-11-22 13:55 | NUR ---
KIMMY MELENDREZ FROM [facility] UPDATED. PLAN TO DISCHARGE TOMORROW FOLLOWING REPEAT BNP IN THE MORNING PER ERP. ALEXUS, PTS SON UPDATED.
[2023-11-22 13:58] VITALS: BP 146/64
--- NOTE | 2023-11-22 14:15 | NUR ---
PT TOLD THIS RN "MAKE SURE YOU EAT WHENEVER YOU FEEL LIKE IT, THERE IS A DEEP FREEZE IN THE BASEMENT TOO." PT UNSURE OF P[RESIDENT OR AGE, BUT REPORTS THAT IT IS OCTOBER. ERP NOTIFIED AND COMES TO BEDSIDE. PT SITTING UP DOING BREATHING TREATMENT.
--- NOTE | 2023-11-22 14:30 | NUR ---
IV discontinued, per ERP ok to not restart new IV at this time.
[2023-11-22 16:03] LABS: PH-URINE 5.5 (5.0 - 8.0); URINE APPEARANCE CLOUDY (CLEAR); URINE BILIRUBIN NEGATIVE (NEGATIVE); URINE COLOR YELLOW (YELLOW); URINE GLUCOSE NEGATIVE (NEGATIVE); URINE KETONE NEGATIVE (NEGATIVE); URINE NITRATE NEGATIVE (NEGATIVE); URINE PROTEIN(semi-quant) TRACE (NEGATIVE)
[2023-11-22 16:04] LABS: URINE BLOOD TRACE-INTACT (NEGATIVE); URINE LEUKOCYTE ESTERASE TRACE (NEGATIVE); URINE WBC 16-30 /hpf (0-3)
[2023-11-22 17:01] VITALS: BP 146/82
--- NOTE | 2023-11-22 17:45 | NUR ---
This RN rounded on patient, pt sitting in bed eating dinner while watching TV currently. Pt denies any needs or pain at this time. Pt notified that we would be back again to check on her soon.
--- NOTE | 2023-11-22 18:47 | NUR ---
Report to KIMMY Mojica.
--- NOTE | 2023-11-22 19:09 | NUR ---
Report received from Ariella ONEAL. Patient resting supine in bed. Alert but confused. Denies pain. Lungs coarse throughout with coarse cough noted. TELE and SAO2 in place. SAO2 99% on 2L/NC. +1 edema to bilateral ankles. Incontinent of urine. Mary Ellen-cares by staff. Mary Ellen/rectal area reddened with no open areas noted. Barrier cream applied. Remains of COVID isolation/1500 ML FR. Denies wants or needs. Bed alarm on. Call light in reach.
--- NOTE | 2023-11-22 20:47 | NUR ---
Remains confused. Taking off oxygen and picking at SAO2 sensor. Desats to 85% when takes oxygen off. Asks staff "when are you going to work"? Then able to state that she is at [facility]. Repositioned by staff with incontinent cares. HS medications taken whole with coaching from nurse. Bed alarm on. Call light in reach.
[2023-11-22 22:05] VITALS: BP 133/75
--- NOTE | 2023-11-22 23:22 | NUR ---
Sets off bed alarm. Took off Oxygen nasal cannula and oxygen sensor. Staff into intervene. Discussed with patient bedrest order and trying to conserve energy. SOA with rest and worse with exertion. Remains confused and does not follow directions well. Repositioned with markel/cares. Reminders from staff to stay in bed, use call light and leave oxygen in place. SAO2 99% on 2L/NC.
--- NOTE | 2023-11-22 23:54 | NUR ---
Crawling out of bed. Assisted to BSC with 2 staff. Voids and had Med (2 hard balls) of BM. Mary Ellen/rectal cares provided. Assisted back to bed. Positioned for comfort. Bed alarm on. (2nd setting). Call light in reach.
[2023-11-23 01:54] VITALS: BP 152/68
--- NOTE | 2023-11-23 04:06 | NUR ---
Rests quietly with eyes closed. SAO2 97% on 2L/NC.
--- NOTE | 2023-11-23 04:46 | NUR ---
Daily weight obtained. Weight is 173.7. Yesterdays weight was 198.1 with admisson weight reported at over 200. Bed was zeroed while patient up to [facility] tonight with appropriate linens on bed. Weight on previous discharge of previous admission was 175.9 with daily weights on all days of previous admission being in the 170's.
--- NOTE | 2023-11-23 06:02 | NUR ---
Set off bed alarm again and pulled off O2 sensor. Staff in room to find patient sitting up on EOB, stating she was "going to the bathroom". States she has to have a BM. Assisted with MAX 2 assist to BSC. Incontinent of urine. Sat on BSC and did not void or have BM. Assisted back to bed. AM Levothyroxine taken at this time. PRN colace given for hard BM. Denies pain. Assisted back to bed with MAX 2 assist. Reminders to use call light for assist. Bed alarm on. Call light in reach. SAO2 99% on 2L/NC.
[2023-11-23 06:07] VITALS: BP 127/65
--- NOTE | 2023-11-23 06:52 | NUR ---
Report to Ariella ONEAL.
--- NOTE | 2023-11-23 09:09 | NUR ---
Endy called for update. Reports transport will be here at 10;30. ERP aware. Message left for Mack, pts son to return call for update. Shira talked with [facility] staff for update on patient status and baseline.
[2023-11-23 10:00] VITALS: BP 148/81
--- NOTE | 2023-11-23 10:06 | NUR ---
YELENA CALLED AGAIN TO SEE ABOUT ALTERNATE NUMBER FOR SON ALEXUS. GIVEN NUMBNER [phone]. ALEXUS UPDATED, TRANSFERRED TO ERP TO SPEAK WITH HIM. PER ERP GOING TO TRY AND GET AHOLD OF PTS OUTSIDE PLANT TECHNICIAN PRIOR TO DISCHARGE. YELENA TORRES NOTIFIED.
--- NOTE | 2023-11-23 10:37 | NUR ---
PT UNHOOKED FROM ALL MONITORING EQUIPMENT X30 MIN, ERP AWARE, APPROVES CURRENTLY WILL UPDATE THIS RN AFTER SPEAKING TO COMPUTER SYSTEMS SECURITY ANALYST.
--- NOTE | 2023-11-23 11:30 | NUR ---
Shira SALINAS and pts son Mack speaking about plan. This nurse notified that pt will return to [facility] [place].
[2023-11-23] MEDS ORDERED: CIPROFLOXACIN250 MG PO (11:44)
[2023-11-23 11:50] VITALS: BP 148/81
[2023-11-23] MEDS ORDERED: MACRODANTIN50 M1 PO (11:52)
[2023-11-23] MEDS ORDERED: DEXAMETHASONE6 M1 PO (11:58)
[2023-11-23] MEDS ORDERED: HYDROXYZINE HCL25 M1 PO (12:02)
[2023-11-23] MEDS ORDERED: AMBIEN5 M1 PO (12:03)
[2023-11-23] MEDS ORDERED: CRANBERRY200 MG PO (12:05)
--- NOTE | 2023-11-23 12:30 | NUR ---
ERP REVIEWED MEDS PRIOR TO DISCHARGE. FILLED OUT LAST GIVEDN MED LIST WITH THIS RN PRIOR TO DISCHARGE. PT TAKEN BACK IN [employer], STAFF IN ACCOMPANIED PATIENT. YELENA MELENDREZ CALLED AND GIVEN UPDATE, NOTIFIED TO CALL BACK WITH ANY QUESTIONS OR CONCERNS. ALL BELONGINGS TAKEN WITH PATIENT UPON DISCHARGE. NO DISTRESS NOTED UPON DISCHARGE. PT TAKEN HOME ON OUR O2 SINCE NONE WAS BROUGHT FOR TRANSFER, PER PETE RETURN ON NEXT TRIP BACK INTO [facility]
== END 2023-11-23 13:09 | DRG 177 ==
LOC: MED/SURG 17:38
PROVIDERS: Family Medicine; Internal Medicine; Physician Assistant; ADMIT Nurse Practitioner Family
PROC: 5A09357 Assistance with Respiratory Ventilation, Less than 24 Consecutive Hours, Continuous Positive Airway Pressure (ICD-10-PCS; principal; 2023-11-18)
PROC: 3E0DX3Z Introduction of Anti-inflammatory into Mouth and Pharynx, External Approach (ICD-10-PCS; 2023-11-18)
DX: U07.1 COVID-19 (principal); I50.33 Acute on chronic diastolic (congestive) heart failure; J96.20 Acute and chronic respiratory failure, unspecified whether with hypoxia or hypercapnia; N17.9 Acute kidney failure, unspecified; N18.9 Chronic kidney disease, unspecified; D63.1 Anemia in chronic kidney disease; I48.91 Unspecified atrial fibrillation; Z66 Do not resuscitate; Z79.01 Long term (current) use of anticoagulants; Z79.890 Hormone replacement therapy; Z79.82 Long term (current) use of aspirin; Z90.5 Acquired absence of kidney; Z95.810 Presence of automatic (implantable) cardiac defibrillator; Z95.2 Presence of prosthetic heart valve; Z96.651 Presence of right artificial knee joint
CPT/HCPCS: J2060; J2270

== ENCOUNTER 2023-11-25 17:12 | Emergency (ER) | payer MEDICARE, BC ==
[~2023-11-25] VITALS: Wt 79.0 kg
[~2023-11-25 17:12] MED LIST changes: +CIPROFLOXACIN250 MG PO; +DEXAMETHASONE6 M1 PO
[2023-11-25 17:34] LABS: HEMATOCRIT 33.9 % (37.0-47.0); HEMOGLOBIN 10.4 g/dL (12.5-16.0); MEAN CELL VOLUME 94 fl (78-100); MEAN CORPUSCULAR HEMOGLOBIN 29 pg (27-31); MEAN CORPUSCULAR HGB CONC 31 g/dL (33-37); MEAN PLATELET VOLUME 12.1 fl (7.4-10.4); PLATELET COUNT 187 K/mm3 (130-400); RED CELL DISTRIBUTION WIDTH 18.3 % (11.5-14.5); WHITE BLOOD COUNT 16.3 K/mm3 (4.8-10.8)
[2023-11-25 17:42] LABS: CALCIUM 9.5 mg/dL (8.3-10.5)
[2023-11-25 17:56] LABS: TROPONIN-I 0.085 ng/mL (<0.030)
[2023-11-25 18:04] LABS: BAND 1 % (0-10); LYMPHOCYTE 2 % (20-51); METAMYELOCYTE 2 % (0-0); MONOCYTE 3 % (3-10); MYELOCYTE 1 % (0-0); NEUTROPHILS 91 % (42-75)
[2023-11-25 18:05] LABS: NUCLEATED RED BLOOD CELL 4 (0-6); POLYCHROMASIA 1+
[2023-11-25 18:06] LABS: MICROCYTOSIS 1+; OVALOCYTES 1+; SCHISTOCYTES 1+
[2023-11-26 06:05] VITALS: BP 142/67
== END 2023-11-26 13:47 | disposition home or self-care (01) ==
LOC: ED 17:12
PROVIDERS: Family Medicine
DX: R05.9 Cough, unspecified (principal); U09.9 Post COVID-19 condition, unspecified; I50.9 Heart failure, unspecified

== ENCOUNTER 2023-12-29 11:30 | Emergency (ER) | payer MEDICARE, BC ==
[~2023-12-29] VITALS: Ht 152.4 cm; Wt 73.9 kg
[2023-12-29 12:23] LABS: BASO # 0.05 K/mm3 (0.02-0.10); EOS # 0.03 K/mm3 (0.04-0.40); EOS % 0.2 % (1.0-5.0); HEMATOCRIT 33.2 % (37.0-47.0); HEMOGLOBIN 9.5 g/dL (12.5-16.0); LYMPH# 1.06 K/mm3 (1.50-4.00); MEAN CELL VOLUME 92 fl (78-100); MEAN CORPUSCULAR HEMOGLOBIN 26 pg (27-31); MEAN CORPUSCULAR HGB CONC 29 g/dL (33-37); MEAN PLATELET VOLUME 10.9 fl (7.4-10.4); PLATELET COUNT 285 K/mm3 (130-400); RED BLOOD COUNT 3.61 M/mm3 (4.10-5.30); WHITE BLOOD COUNT 14.2 K/mm3 (4.8-10.8)
[2023-12-29 12:30] LABS: ALBUMIN 3.3 g/dL (3.4-4.8)
[2023-12-29 12:32] LABS: CALCIUM 9.3 mg/dL (8.3-10.5)
[2023-12-29 12:35] LABS: TOTAL BILIRUBIN 0.91 mg/dL (0.2-1.2)
[2023-12-29 12:48] LABS: TROPONIN-I 0.081 ng/mL (0.00-0.033)
[2023-12-29 15:31] LABS: URINE COLOR YELLOW (YELLOW)
[2023-12-29 15:32] LABS: URINE APPEARANCE CLOUDY (CLEAR); URINE BILIRUBIN NEGATIVE (NEGATIVE); URINE BLOOD 2+ (NEGATIVE); URINE GLUCOSE TRACE (NEGATIVE); URINE KETONE NEGATIVE (NEGATIVE); URINE NITRATE NEGATIVE (NEGATIVE); URINE PROTEIN(semi-quant) NEGATIVE (NEGATIVE)
[2023-12-29] MEDS ORDERED: COLACE100 M1 PO (15:32)
[2023-12-29 15:33] LABS: URINE LEUKOCYTE ESTERASE 3+ (NEGATIVE); URINE WBC >50 /hpf (0-3)
[2023-12-29 15:35] VITALS: BP 137/70
[2023-12-29] MEDS ORDERED: JARDIANCE10 MG PO (16:03)
[2023-12-29] MEDS ORDERED: LEVOTHYROXINE100 MC1 PO (16:06)
[2023-12-29] MEDS ORDERED: TORSEMIDE20 M1 PO (16:16)
== END 2023-12-29 11:36 ==
LOC: ED 11:30
PROVIDERS: Nurse Practitioner Family
DX: I50.9 Heart failure, unspecified (principal); N18.9 Chronic kidney disease, unspecified; F41.9 Anxiety disorder, unspecified; Z79.899 Other long term (current) drug therapy
CPT/HCPCS: J1940; J2060